=== PATIENT | female | born 1955 | race Caucasian/White ===

== ENCOUNTER 2024-08-08 18:44 | Emergency (ER) | payer MEDICARE ==
[2024-08-08] MEDS: DUONEB 0.5-3 MG/3 ml Neb IH ONE (18:50)
[2024-08-08] MEDS ORDERED: DUONEB 0.5-3 MG/3 ml Neb IH ONE (18:53)
[2024-08-08 19:10] LABS: BASOPHIL % 1.3 % (0.1-1.2); Basophil (Absolute #) 0.11 x10^3/uL (0.01-0.08); Eosinophil % 8.4 % (0.7-5.8); Eosinophil (Absolute #) 0.73 x10^3/uL (0.04-0.36); Hematocrit 37.3 % (34.1-44.9); Hemoglobin 12.5 g/dL (11.2-15.7); IMMATURE GRAN # 0.05 x10^3u/L (0.001-0.031); IMMATURE GRAN % 0.6 % (0.001-0.429); Lymphocyte (Absolute #) 0.87 x10^3/uL (1.18-3.74); Mean Corpuscular Hemoglobin 29.5 pg (25.6-32.2); Mean Corpuscular Hgb Concent. 33.5 g/dL (32.2-35.5); Mean Platelet Volume 8.8 fL (9.4-12.3); Monocyte (Absolute #) 0.66 x10^3/uL (0.24-0.86); Monocytes % 7.6 % (4.7-12.5); Neutrophil % 72.1 % (34.0-71.1); Platelet Count 332 x10^3/uL (182-369); Red Blood Count 4.24 x10^6/uL (3.93-5.22); Red Cell Distribution Width 13.2 % (11.7-14.4); White Blood Count 8.7 x10^3/uL (3.98-10.04)
[2024-08-08 19:29] LABS: Lactic Acid 1.1 (0.4-2.0); VBG BASE EXCESS 8.3 (-2.0-2.0); VBG CARBOXYHEMOGLOBIN 6.5 % T HGB (0.0-6.9); VBG HCO3- 34.4 meq/L (22-28); VBG HEMOGLOBIN 13.2; VBG O2 SATURATION 95.3 (95-100); VBG pH 7.42 (7.32-7.42)
[2024-08-08 19:33] LABS: ANION GAP 11.9 MEQ/L (5-15); BILIRUBIN,TOTAL 0.3 mg/dL (0.2-1.3); Calcium 9.1 mg/dL (8.4-10.2); Creatinine 1 0.89 mg/dL (0.52-1.04); EST GLOMERULAR FILTRATION RATE 70.6 ML/MIN; Potassium 3.9 mmol/L (3.5-5.1)
[2024-08-08] MEDS ORDERED: Sodium Chloride 0.9% 1000 ML 1,000 ML ONE (19:34)
[2024-08-08] MEDS ORDERED: BACIGUENT PACKET ONE (19:35)
[2024-08-08] MEDS ORDERED: Propofol 1000 mg/100 ml Bottle 100 ML IV ONE (19:53)
[2024-08-08] MEDS ORDERED: SUBLIMAZE 100 MCG/2 ML ONE ×2 (19:56→21:37)
[2024-08-08] MEDS: BACIGUENT PACKET TP ONE ×2 (20:04→20:05)
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
[2024-08-08] MEDS ORDERED: FENTANYL 500 MCG/10 ML VIAL IV ONE ×2 (21:39→21:42)
[2024-08-08] MEDS ORDERED: Sodium Chloride 0.9% 150 ML 150 ML IV ONE (21:40)
[2024-08-08 21:42] LABS: A-aADO2 131; ABG HEMOGLOBIN 12.7; ABG POTASSIUM 4.4 (3.5-5.1); ABG SITE LEFT RADIAL; ALLEN TEST OK? YES; ARTERIAL BLD GAS O2 SATURATION 99.9 % (95-100); ARTERIAL BLD GAS TIDAL VOLUME 500 cc; ARTERIAL BLOOD GAS FIO2 60 %; ARTERIAL BLOOD GAS PCO2 59 mmHg (35-45); ARTERIAL BLOOD GAS PEEP 5 cmH2O; ARTERIAL BLOOD GAS PO2 223 mmHg (75-100); ARTERIAL BLOOD GAS VENT MODE AC; ARTERIAL BLOOD GAS VENT RATE 16 /MIN; ARTERIAL BLOOD GAS pH 7.37 (7.35-7.45); HCO3- 34.1 (22-28); Methhemoglobin 0.8 % (1.4-1.5); paO2 pAO1 0.63
[2024-08-08 22:07] VITALS: PULSE 77
[2024-08-08 22:25] VITALS: BP 123/80; RESP 18; TEMP 98.8
[2024-08-08 22:47] VITALS: O2SAT 99
--- NOTE | 2024-08-09 08:35 | XRAY ---
Indication: Short of breath. COPD. Comparison: None Portable chest inflated and clear with incidental COPD. Heart not enlarged with right Port-A-Cath. Bony thorax intact with osteopenia and mild degenerative changes. Impression: Nonacute chest with chronic features.
--- NOTE | 2024-08-09 08:37 | XRAY ---
Indication: Intubation. Comparison: Taken earlier in the day. Portable chest demonstrates new endotracheal tube tip approximately 2 cm above king and new NG tube traversing chest with tip in left upper quadrant abdomen presumed in stomach. Remaining heart and lungs unchanged again demonstrating COPD. No new/acute cardiopulmonary abnormalities.
== END 2024-08-08 22:35 | disposition short-term general hospital (02) ==
LOC: ED 18:44
DX: T20.10XA Burn of first degree of head, face, and neck, unspecified site, initial encounter (principal); T25.222A Burn of second degree of left foot, initial encounter; T27.3XXA Burn of respiratory tract, part unspecified, initial encounter; X03.8XXA Other exposure to controlled fire, not in building or structure, initial encounter; J44.1 Chronic obstructive pulmonary disease with (acute) exacerbation; I10 Essential (primary) hypertension; Z79.52 Long term (current) use of systemic steroids; Z79.899 Other long term (current) drug therapy; Z72.0 Tobacco use; Z99.81 Dependence on supplemental oxygen
CPT/HCPCS: 31500; 36415; 36600; 51702; 71045; 80053; 82375; 82803; 82805; 83605; 83735; 83880; 84484; 85025; 87040; 93005; 94002; 94640; 99285; 99291; J2704; J3010; A9270-GY